=== PATIENT | female | born 1970 | race Caucasian/White ===

== ENCOUNTER 2020-03-06 12:31 | Outpatient (REF) | payer MEDICAID, SELFPAY ==
--- NOTE | 2020-03-06 10:30 | PAPFT_PTH ---
PATIENT: Ana Guidry LOC: [facility]#:[id number] AGE/SX: 50/F ROOM: RE03/06/[address]: Chelsea Albarran : 1970 BED: DIS: 03/06/2020 SPEC #: [id number] RECD: 03/07/20 12:52 STATUS: ERIK REQ #: [id number] AYSHA: 03/06/20 10:[address]: Chelsea Albarran DEPT: [facility] Cytology RECD BY: Marylin Norwood Tissues: 1 - CX/ENDOCX FOR PAP SMEARS Procedures: PAP THIN PREP/[facility] Screening HPV DNA PROBE Comments: [id number]
[2020-03-06 21:10] LABS: ALT 33 U/L (14-59); AST 19 U/L (15-37); Albumin 3.8 g/dL (3.4-5.0); Alkaline Phosphatase 101 U/L (46-116); Anion Gap 9.8 mmol/L (3-11); BUN 12 mg/dL (7-18); Bilirubin, Total 0.7 mg/dL (0.2-1.0); CO2 24.2 mmol/L (21.0-32.0); CREATININE 0.92 mg/dL (0.55-1.02); Calcium 8.9 mg/dL (8.5-10.1); Calculated LDL 123 mg/dL (<100); Chloride 104 mmol/L (98-107); Cholesterol 192 mg/dL (<200); Glucose 92 mg/dL (74-106); HDL Cholesterol 42 mg/dL (40-60); Potassium 4.4 mmol/L (3.5-5.1); Sodium 138 mmol/L (136-145); TSH 2.23 uIU/mL (0.36-3.74); Total Protein 6.9 g/dL (6.4-8.2); Triglyceride 135 mg/dL (<150)
== END 2020-03-06 12:51 ==
LOC: NCHCN 12:31
PROVIDERS: PCP Family Medicine; Visit Provider Family Medicine
DX: E78.5 Hyperlipidemia, unspecified (principal); E66.9 Obesity, unspecified; Z13.29 Encounter for screening for other suspected endocrine disorder; Z12.4 Encounter for screening for malignant neoplasm of cervix; Z11.51 Encounter for screening for human papillomavirus (HPV); Z00.00 Encounter for general adult medical examination without abnormal findings
CPT/HCPCS: 80053; 80061; 88142; 84443; 87624

== ENCOUNTER 2024-06-13 15:58 | Outpatient (REF) | payer SELFPAY ==
--- NOTE | 2024-06-13 09:15 | PAPFT_PTH ---
PATIENT: Ana Guidry LOC: [facility]#:[id number] AGE/SX: 54/F ROOM: RE06/13/[address]: Chelsea Albarran : 1970 BED: DIS: 06/13/2024 SPEC #: [id number] RECD: 06/13/24 17:37 STATUS: ERIK REQ #: [id number] AYSHA: 06/13/24 09:[address]: Chelsea Albarran DEPT: [facility] Cytology RECD BY: Marylin Norwood Tissues: 1 - CX/ENDOCX FOR PAP SMEARS Procedures: PAP THIN PREP/[facility] Screening HPV DNA PROBE Comments: [id number] (HPV 16 & 18/45) (CHLAMYDIA/GC)
[2024-06-14 11:58] LABS: Chlamydia Result Negative (Negative); GC Result Negative (Negative)
== END 2024-06-13 15:59 | disposition home or self-care (01) ==
LOC: NCHCN 15:58
PROVIDERS: PCP Family Medicine; Visit Provider Family Medicine
DX: Z11.51 Encounter for screening for human papillomavirus (HPV) (principal); Z01.419 Encounter for gynecological examination (general) (routine) without abnormal findings
CPT/HCPCS: 87491; 87591; 88142; 87624

== ENCOUNTER 2025-06-27 19:11 | Outpatient (REF) | payer BC, SELFPAY | END 2025-06-27 19:12 | disposition home or self-care (01) | LOC: NCHCN 19:11 | PROVIDERS: PCP Family Medicine; Visit Provider Nurse Practitioner Family | DX: R30.0 Dysuria (principal) | CPT/HCPCS: 87077; 87086; 87186 ==